=== PATIENT | female | born 2000 | race Caucasian/White ===

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

== ENCOUNTER 2023-12-27 19:43 | Emergency (ER) | payer MEDICAID ==
--- NOTE | 2023-12-27 20:10 | ED Physician Documentation ---
History of Present Illness - Stated complaint Stated Complaint: LOWER ABD PX - Chief complaint Chief Complaint: Abd Pain - Additonal information Additional information: 23-year-old female with history of chronic bladder infections presents with lower abdominal pain. She states in the last day she developed lower, primarily left-sided abdominal cramping rating towards her back. Pain makes her want to move around when it occurs in waves. She has nausea without vomiting. No fevers or chills. No chest or other back pain. She has frequent urination without dysuria or hematuria. No constipation or diarrhea. She has not had a menstrual cycle in months, and was previously on Depo shot but has not had this in a few months either. She was last sexually active without condoms 2 weeks ago. She denies vaginal discharge, lesions. No trauma. No prior abdominal surgeries. No pain medications taken at home. No anticoagulation. No known family history of kidney stones. No other new concerns. ROS Constitutional: no fever, no chills Eyes: no visual disturbance, no discharge Ears, Nose, Mouth, Throat: no rhinorrhea, no sore throat Cardiovascular: no chest pain, no palpitations Respiratory: no cough, no shortness of breath Gastrointestinal: +abdominal pain, no vomiting, no diarrhea Genitourinary: no dysuria, no hematuria Musculoskeletal: no back pain, +flank pain, no neck stiffness Skin: no rash, no wound Neurological: no focal weakness, no focal numbness PD PAST MEDICAL HISTORY - Past Medical History Past Medical History: Yes Cardiovascular: None Respiratory: None Neuro: None Endocrine/Autoimmune: None GI: None ADMINISTRATIVE SERVICES COORDINATOR: None : Chronic bladder infection HEENT: None Psych: ADD/ADHD Musculoskeletal: None Derm: None - Past Surgical History Past Surgical History: No HEENT: Tonsil/Adenoidectomy - Present Medications Home Medications: Ambulatory Orders Medication Instructions Recorded Confirmed No Known Home Medications 12/27/23 12/27/23 - Allergies Allergies/Adverse Reactions: Allergies Allergy/AdvReac Type Severity Reaction Status Date / Time No Known Drug Allergies Allergy Verified 12/27/23 20:02 - Social History Does the pt smoke?: No Smoking Status: Never smoker Does the pt drink ETOH?: No Does the pt have substance abuse?: No - Immunizations Immunizations are current?: Yes PD ED PE NORMAL - Free text exam Free text exam: Const: no acute distress, non toxic appearing; calm, conversant, pleasant Eyes: PERRLA, EOMI ENT: mucous membranes moist Neck: supple, non-tender Resp: no respiratory distress, clear to auscultation bilaterally Card: regular rate and rhythm, no murmurs Abd: +LLQ and surpapubic tenderness, no other abdominal tenderness, no rigidity or rebound or guarding Back: no T or L spine tenderness, no CVA tenderness bilaterally Extrem: no deformities, no swelling bilateral lower extremities, 2+ distal pulses all extremities Neuro: ANOx4, scrap cutter grossly intact, grossly intact sensation and strength all extremities Skin: no rash, warm and dry Results - Vitals Vitals: Vital Signs - 24 hr 12/27/23 12/27/23 12/27/23 19:58 20:29 21:25 Temperature 36.4 C L Heart Rate 88 87 87 Respiratory 16 16 16 Rate Blood Pressure 126/70 127/79 141/78 H O2 Saturation 97 100 100 Oxygen O2 Source Room air - Labs Labs: Laboratory Tests 12/27/23 12/27/23 12/27/23 20:16 20:30 20:30 WBC 11.7 H RBC 4.89 Hgb 14.9 Hct 44.3 MCV 90.6 MCH 30.5 MCHC 33.6 RDW 11.9 L Plt Count 343 MPV 10.6 Neut # (Auto) 6.4 Lymph # (Auto) 4.2 H [place] # (Auto) 0.8 Eos # (Auto) 0.2 Baso # (Auto) 0.1 Absolute Nucleated RBC 0.00 Nucleated RBC % 0.0 Sodium 140 Potassium 4.0 Chloride 106 Carbon Dioxide 24 Anion Gap 10.0 BUN 11 Creatinine 0.8 Estimated GFR (MDRD) 91 Glucose 71 L Calcium 9.2 Total Bilirubin 0.4 AST 22 ALT 17 Alkaline Phosphatase 94 Total Protein 7.3 Albumin 4.3 Globulin 3.0 Albumin/Globulin Ratio 1.4 Lipase 41 Urine Color YELLOW Urine Clarity HAZY Urine pH 6.0 Ur Specific [place] 1.025 Urine Protein NEGATIVE Urine Glucose (UA) NEGATIVE Urine Ketones NEGATIVE Urine Occult Blood NEGATIVE Urine Nitrite NEGATIVE Urine Bilirubin NEGATIVE Urine Urobilinogen 0.2 (NORMAL) Ur Leukocyte Esterase MODERATE H Urine RBC 0-5 Urine WBC 4-5 Ur Squamous Epith Cells RARE Squamous Urine Bacteria Rare Urine Mucus Few Strands Ur Microscopic Review INDICATED Urine Culture Comments INDICATED Urine HCG, Qual NEGATIVE C. glabrata (PCR) C. krusei (PCR) Amira species DNA Chlam trachomat DNA PCR N.gonorrhoeae DNA (PCR) T. vaginalis (PCR) Bact Vaginosis (PCR) 12/27/23 12/27/23 23:35 23:35 WBC RBC Hgb Hct MCV MCH MCHC RDW Plt Count MPV Neut # (Auto) Lymph # (Auto) [place] # (Auto) Eos # (Auto) Baso # (Auto) Absolute Nucleated RBC Nucleated RBC % Sodium Potassium Chloride Carbon Dioxide Anion Gap BUN Creatinine Estimated GFR (MDRD) Glucose Calcium Total Bilirubin AST ALT Alkaline Phosphatase Total Protein Albumin Globulin Albumin/Globulin Ratio Lipase Urine Color Urine Clarity Urine pH Ur Specific [place] Urine Protein Urine Glucose (UA) Urine Ketones Urine Occult Blood Urine Nitrite Urine Bilirubin Urine Urobilinogen Ur Leukocyte Esterase Urine RBC Urine WBC Ur Squamous Epith Cells Urine Bacteria Urine Mucus Ur Microscopic Review Urine Culture Comments Urine HCG, Qual C. glabrata (PCR) NEGATIVE C. krusei (PCR) NEGATIVE Amira species DNA NEGATIVE Chlam trachomat DNA PCR NEGATIVE N.gonorrhoeae DNA (PCR) NEGATIVE T. vaginalis (PCR) NEGATIVE TNP Bact Vaginosis (PCR) NEGATIVE - Rads (name of study) Pelvic US Relevant Findings:: See rad report, Other (I agree with radiology reads of imaging on my independent review of imaging. ) CT A/P without contrast Relevant Findings:: See rad report (I agree with radiology reads of imaging on my independent review of imaging. ), Other PD Medical Decision Making - ED course ED course: This patients presentation is most suggestive of nephrolithiasis, pyelonephritis, though I have considered a broad differential including but not limited to ectopic , ovarian torsion, STD, PID, sprain or strain, diverticulitis, shingles, among others. Her description of her pain is suggestive of nephrolithiasis, though a test is pivotal and will inform further work up. I am ordering urine with hCG, CBC, CMP, lipase. I am giving fluids, Tylenol, with patient declining additional pain or nausea medications currently, and will closely reassess. Labs: negative. I am ordering transvaginal pelvic ultrasound to assess for less likely etiologies such as ovarian torsion, though patient currently comfortable. CBC with mild leukocytosis, no anemia or thrombocytopenia. CMP with borderline hypoglycemia, however overall reassuring. Patient is tolerating p.o. without symptoms of hypoglycemia. Urine shows moderate leukocyte esterase, though negative nitrites, only 4-5 white blood cells, and only rare bacteria in the setting of her squames. Urine culture sent, however this is not clearly an infection, and on repeat discussion with patient, she also denies urinary symptoms. Lipase reassuring. Imaging: I agree with US radiology read below on my review of imaging: "FINDINGS: Uterus: Uterus is anteverted and normal in size at 2.0 x 4.6 x 6.1 cm. The myometrium is homogeneous. The endometrium measures between 10.4 and 11.4 mm mm in combined thickness. The morphology of the upper uterus is arcuate versus bicornuate. Ovaries: The right ovary measures 2.4 x 1.4 x 2.2 cm, with a calculated ovarian volume of 3.7 cc. The left ovary measures 2.0 x 1.7 x 2.6 cm, with a calculated ovarian volume of 4.6 cc. Appropriateblood flow to the ovaries with Doppler interrogation. Less than 12 follicles can be seen in each ovary. No adnexal masses are seen. No cystic lesions measuring greater than 3 cm. Other: No pathologic free abdominal or pelvic fluid. IMPRESSION: No evidence of ovarian torsion bilaterally. 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 This morphology potentially increases risk of . Reviewed by: Jj Suazo MD on 12/27/2023 10:16 PM PDT" Note imaging findings including incidental findings discussed with patient for follow up; uterus morphology unlikely to have caused her pain. I am adding CT A/P without contrast to assess for nephrolithiasis. CT result: I agree with CT radiology read below on my review of imaging: "FINDINGS: Image quality: Diagnostic. Lower chest: Unremarkable. Liver: No contour-deforming mass. Gallbladder: Partially contracted. Biliary tree: No intrahepatic or extrahepatic dilation, accounting for age. Spleen: No splenomegaly. Pancreas: No pancreatic ductal dilation. Adrenals: No adrenal nodule. Kidneys and ureters: No hydronephrosis. No contour-deforming mass. Stomach, bowel and peritoneum: No gastric or small bowel dilation. No abnormal wall thickening. No pathologic free fluid. Lymph nodes: No central or retroperitoneal adenopathy. Vessels: No infrarenal aortic aneurysm. Reproductive organs: Unremarkable. Bladder: Bladder wall thickness is normal, accounting for underdistention. No calcified bladder stones. Pelvic lymph nodes: No adenopathy by size criteria. Bones: No aggressive osseous abnormality. Other: No significant ventral or inguinal hernia. Normal appendix found right lower quadrant. IMPRESSION: No hydronephrosis or obstructing renal stone. No evidence of diverticulitis. Normal appendix found. Reviewed by: Jj Suazo MD on 12/27/2023 10:18 PM PDT " Patient comfortable, resting in bed, appearing well. Note lack of vaginal discharge/pain or lesions argues against STD/PID. However, given lack of other clear cause and recent intercourse, I recommended testing and pelvic exam. Wet mount, vaginal pathogens ordered. Patient consents to exam. Pelvic exam performed with Pamela NOLEN as casting chipper at roughly 11:35PM. Normal appearing external genitalia. On speculum exam, cervix visualized partially and appears healthy, non friable, without discharge (patient aware of lack of full visualization and my recommendation for repeat formal exam outpatient). No CMT on bimanual exam. Patient declines empiric STD antibiotics currently. She also continues to deny UTI symptoms, making UTI less likely, though she understands follow up of urine culture. No clear explanation currently for pain. Accordingly, she understands importance of strict close follow up and return precautions. No other new concerns. She is currently asymptomatic and well appearing. Patient requesting to discharge prior to results returning. She consents to me leaving detailed voicemail with results. Discharging in stable condition. Copy of imaging results given, and work up discussed for follow up. Repeat exams and vital signs reassuring. Patient ambulatory, tolerating PO, and asymptomatic. Patient questions answered and plan reviewed. Strong return precautions given. Patient discharged. Later results: amira, bacterial vaginosis, G/C, trichomonas returned negative. I called patient to inform her of results and left voicemail (without identifying information) at the number she gave us, stating results were negative, per our prior plan. Departure - Departure Disposition: 01 Home, Self Care Clinical Impression: Abdominal pain Qualifiers: Abdominal location: lower abdomen, unspecified Qualified Code(s): R10.30 - Lower abdominal pain, unspecified Condition: Good Instructions: ED Abdominal Pain Female Non-Specific Abdominal Pain Comments: It was a pleasure taking care of you today. It is important to fully read and understand the below. Please ask us if you have any questions. We obtained extensive testing today without clear cause for your symptoms. As noted, your urine shows mild evidence of infection, but it is not definitive, and you deny urinary symptoms. Accordingly, we do not typically treat this with antibiotics. In addition, we sent STD studies that will need follow-up. You consented to me calling you with the results overnight, but please note some results may take more time to return. It is very important you see a doctor within 2-3 days to be reassessed and discuss all your results from today. It is very important you immediately return if you worsen or have new symptoms. No tests are perfect, and your condition could loom changeover operator time. If your symptoms change or worsen, it is very important you immediately seek medical ca re. If you have any new or worsening pain, rash, lightheadedness or passing out, bleeding, shortness of breath, fever, vomiting, confusion, numbness, weakness, or anything else that concerns you, please immediately seek medical care. If you have been prescribed any medications: please read the drug package inserts on how to properly use the medication and any potential side effects. If you had labs (blood tests) or imaging (CT scan or x-rays) done during your visit: please follow up on the results of these with your primary care doctor, as discussed. In addition, please know the results we received today may be preliminary. Our usual practice is to follow up on tests within a few days of a patient's discharge from the Emergency Department and notify you of any changes. These may lead to changes to your treatment plan. However, the best way to obtain and interpret these test results is through your Primary Care Provider. If you need to update your contact information, please stop by the hotel front desk clerk and alert the Registration personnel before you leave the Emergency Department. Thank you for the opportunity to participate in your healthcare. We are always here and happy to see you in the future. - YOUR IMAGING RESULTS TO DISCUSS WITH YOUR DOCTOR: CT ABD/PEL: FINDINGS: Image quality: Diagnostic. Lower chest: Unremarkable. Liver: No contour-deforming mass. Gallbladder: Partially contracted. Biliary tree: No intrahepatic or extrahepatic dilation, accounting for age. Spleen: No splenomegaly. Pancreas: No pancreatic ductal dilation. Adrenals: No adrenal nodule. Kidneys and ureters: No hydronephrosis. No contour-deforming mass. Stomach, bowel and peritoneum: No gastric or small bowel dilation. No abnormal wall thickening. No pathologic free fluid. Lymph nodes: No central or retroperitoneal adenopathy. Vessels: No infrarenal aortic aneurysm. Reproductive organs: Unremarkable. Bladder: Bladder wall thickness is normal, accounting for underdistention. No calcified bladder stones. Pelvic lymph nodes: No adenopathy by size criteria. Bones: No aggressive osseous abnormality. Other: No significant ventral or inguinal hernia. Normal appendix found right lower quadrant. IMPRESSION: No hydronephrosis or obstructing renal stone. No evidence of diverticulitis. Normal appendix found. Reviewed by: Jj Suazo MD on 12/27/2023 10:18 PM PDT US PELVIS: "FINDINGS: Uterus: Uterus is anteverted and normal in size at 2.0 x 4.6 x 6.1 cm. The myometrium is homogeneous. The endometrium measures between 10.4 and 11.4 mm mm in combined thickness. The morphology of the upper uterus is arcuate versus bicornuate. Ovaries: The right ovary measures 2.4 x 1.4 x 2.2 cm, with a calculated ovarian volume of 3.7 cc. The left ovary measures 2.0 x 1.7 x 2.6 cm, with a calculated ovarian volume of 4.6 cc. Appropriateblood flow to the ovaries with Doppler interrogation. Less than 12 follicles can be seen in each ovary. No adnexal masses are seen. No cystic lesions measuring greater than 3 cm. Other: No pathologic free abdominal or pelvic fluid. IMPRESSION: No evidence of ovarian torsion bilaterally. 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 This morphology potentially increases risk of . Forms: PCP List Discharge Date/Time: 12/28/23 00:51
[2023-12-27 20:25] LABS: BILIRUBIN,URINE NEGATIVE (NEGATIVE); GLUCOSE, URINE (UA) NEGATIVE (NEGATIVE); KETONES,URINE (UA) NEGATIVE (NEGATIVE); LEUKOCYTE ESTERASE, URINE MODERATE (NEGATIVE); NITRITE,URINE NEGATIVE (NEGATIVE); OCCULT BLOOD,URINE NEGATIVE (NEGATIVE); PROTEIN,URINE NEGATIVE (NEGATIVE); UROBILINOGEN,URINE 0.2 (NORMAL) E.U./dL (NORMAL)
[2023-12-27 20:27] LABS: CLARITY,URINE HAZY (CLEAR)
[2023-12-27 20:28] LABS: HCG UR QUAL NEGATIVE
[2023-12-27 20:32] LABS: BACTERIA,URINE Rare /HPF (None Seen); MUCUS,URINE Few Strands; RBC,URINE 0-5 /HPF (0-5); SQUAMOUS EPITHELIAL CELL,UR RARE Squamous (<= Few)
[2023-12-27] MEDS: ACETAMINOPHEN 325 MG TABLET PO STA (20:32)
[2023-12-27 20:33] VITALS: O2SAT 100
[2023-12-27] MEDS: SODIUM CHLORIDE 0.9% 1,000 ML IV STA (20:34)
[2023-12-27 20:41] LABS: BASOPHILS # (AUTO) 0.1 10^3/uL (0.0-0.1); BASOPHILS % (AUTO) 0.7 %; EOSINOPHILS # (AUTO) 0.2 10^3/uL (0.0-0.7); EOSINOPHILS % (AUTO) 1.3 %; HCT - HEMATOCRIT 44.3 % (37.0-47.0); HGB - HEMOGLOBIN 14.9 g/dL (12.0-16.0); LYMPHOCYTES # (AUTO) 4.2 10^3/uL (1.5-3.5); MEAN CORPUSCULAR HEMOGLOBIN 30.5 pg (27.0-31.0); MEAN CORPUSCULAR HGB CONC 33.6 g/dL (32.0-36.0); MEAN CORPUSCULAR VOLUME 90.6 fL (81.0-99.0); MEAN PLATELET VOLUME 10.6 fL (7.9-10.8); MONOCYTES # (AUTO) 0.8 10^3/uL (0.0-1.0); NEUTROPHILS # (AUTO) 6.4 10^3/uL (1.5-6.6); NEUTROPHILS % (AUTO) 54.8 %; PLT - PLATELET COUNT 343 10^3/uL (130-450); RED BLOOD COUNT 4.89 10^6/uL (4.20-5.40); RED CELL DISTRIBUTION WIDTH 11.9 % (12.0-15.0); WHITE BLOOD COUNT 11.7 x10^3/uL (4.8-10.8)
[2023-12-27 21:00] LABS: ALBUMIN 4.3 g/dL (3.2-5.5); ALBUMIN/GLOBULIN RATIO 1.4 (1.0-2.2); BILIRUBIN,TOTAL 0.4 mg/dL (0.2-1.0); CALCIUM 9.2 mg/dL (8.5-10.3); CREATININE 0.8 mg/dL (0.6-1.3); TOTAL PROTEIN 7.3 g/dL (6.4-8.9)
[2023-12-27 21:33] VITALS: BP 141/78
[2023-12-27] MEDS: ONDANSETRON 4 MG/2 ML VIAL IVP STA (21:51)
--- NOTE | 2023-12-27 22:18 | Ultrasound Report ---
PROCEDURE: Pelvic w/Transvag+Doppler Comp INDICATIONS: LLQ pain, assess for ovarian torsion TECHNIQUE: Real-time scanning was performed of the pelvic organs, with image documentation. Additional endovagi nal scanning was necessary due to incomplete visualization of the adnexal and endometrial structures by transabdominal scanning. Doppler interrogation was performed of the ovaries bilaterally. COMPARISON: None. FINDINGS: Uterus: Uterus is anteverted and normal in size at 2.0 x 4.6 x 6.1 cm. The myometrium is homogeneou s. The endometrium measures between 10.4 and 11.4 mm mm in combined thickness. The morphology of th e upper uterus is arcuate versus bicornuate. Ovaries: The right ovary measures 2.4 x 1.4 x 2.2 cm, with a calculated ovarian volume of 3.7 cc. T he left ovary measures 2.0 x 1.7 x 2.6 cm, with a calculated ovarian volume of 4.6 cc. Appropriate b lood flow to the ovaries with Doppler interrogation. Less than 12 follicles can be seen in each ova ry. No adnexal masses are seen. No cystic lesions measuring greater than 3 cm. Other: No pathologic free abdominal or pelvic fluid. IMPRESSION: No evidence of ovarian torsion bilaterally. Unexpected finding of bicornuate/arcuate morphology of th e upper uterus. This morphology potentially increases risk of . Reviewed by: Jj Suazo MD on 12/27/2023 10:16 PM PDT Approved by: Jj Suazo MD on 12/27/2023 10:16 PM PDT Station ID: [id number]
--- NOTE | 2023-12-27 22:19 | CT Report ---
PROCEDURE: Abdomen/Pelvis WO INDICATIONS: LLQ pain, assess for nephrolithiasis TECHNIQUE: A CT scan of the abdomen and pelvis was performed without the use of intravenous contrast. Images we re recorded and evaluated at appropriate window settings. Reformats: coronal and sagittal. For radiat ion dose reduction, the following was used: automated exposure control, adjustment of mA and/or kV ac cording to patient size. COMPARISON: None. FINDINGS: Image quality: Diagnostic. Lower chest: Unremarkable. Liver: No contour-deforming mass. Gallbladder: Partially contracted. Biliary tree: No intrahepatic or extrahepatic dilation, accounting for age. Spleen: No splenomegaly. Pancreas: No pancreatic ductal dilation. Adrenals: No adrenal nodule. Kidneys and ureters: No hydronephrosis. No contour-deforming mass. Stomach, bowel and peritoneum: No gastric or small bowel dilation. No abnormal wall thickening. No pa thologic free fluid. Lymph nodes: No central or retroperitoneal adenopathy. Vessels: No infrarenal aortic aneurysm. Reproductive organs: Unremarkable. Bladder: Bladder wall thickness is normal, accounting for underdistention. No calcified bladder stone s. Pelvic lymph nodes: No adenopathy by size criteria. Bones: No aggressive osseous abnormality. Other: No significant ventral or inguinal hernia. Normal appendix found right lower quadrant. IMPRESSION: No hydronephrosis or obstructing renal stone. No evidence of diverticulitis. Normal appendix found. Reviewed by: Jj Suazo MD on 12/27/2023 10:18 PM PDT Approved by: Jj Suazo MD on 12/27/2023 10:18 PM PDT Station ID: [id number]
[2023-12-28 02:11] LABS: CHLAMYDIA TRACHOMATIS DNA NEGATIVE (NEGATIVE); NEISSERIA GONORRHOEAE DNA NEGATIVE (NEGATIVE)
[2023-12-28 02:18] LABS: BACTERIAL VAGINOSIS DNA NEGATIVE (NEGATIVE); CANDIDA GLABRATA DNA NEGATIVE (NEGATIVE); CANDIDA GROUP DNA NEGATIVE (NEGATIVE); CANDIDA KRUSEI DNA NEGATIVE (NEGATIVE); TRICHOMONAS VAGINALIS DNA NEGATIVE (NEGATIVE)
== END 2023-12-28 00:51 | disposition home or self-care (01) ==
LOC: ED 19:43
DX: R10.30 Lower abdominal pain, unspecified (principal)
CPT/HCPCS: 36415; 74176; 76830; 76856; 80053; 81001; 81025; 81514; 83690; 85025; 87086; 87491; 87591; 93975; 96374; 99283; 99284; A9270; 81003; 87210; 87661